=== PATIENT | male | born 1990 | race Two or more races ===

== ENCOUNTER 2018-08-26 12:13 | Emergency (ER) | payer OTHER, MEDICAID ==
[~2018-08-26] VITALS: Ht 165.1 cm; Wt 80.7 kg
[2018-08-26 12:28] VITALS: BP 124/79
== END 2018-08-26 14:17 | disposition home or self-care (01) ==
LOC: ER 12:13
DX: S01.83XA Puncture wound without foreign body of other part of head, initial encounter (principal); W22.8XXA Striking against or struck by other objects, initial encounter; Y93.89 Activity, other specified; Y99.8 Other external cause status; Y92.89 Other specified places as the place of occurrence of the external cause